=== PATIENT | male | born 1955 | race Two or more races ===

== ENCOUNTER → 2024-04-20 08:38 | Outpatient (CLI) | payer OTHER ==
[~2024-04-20 08:38] MED LIST: GABAPENTIN800 M1 PO
== END | disposition home or self-care (01) ==
LOC: LAB 08:38
PROVIDERS: ATTEND Urology
DX: R97.20 Elevated prostate specific antigen [PSA] (principal)

== ENCOUNTER 2024-06-22 08:51 | Outpatient (CLI) | payer OTHER | END 2024-06-22 08:59 | disposition home or self-care (01) | LOC: LAB 08:51 | PROVIDERS: ATTEND Urology | DX: R97.20 Elevated prostate specific antigen [PSA] (principal) ==

== ENCOUNTER → 2024-09-30 10:11 | Outpatient (CLI) | payer OTHER | END | disposition home or self-care (01) | LOC: LAB 10:11 | PROVIDERS: ATTEND Urology | DX: R97.20 Elevated prostate specific antigen [PSA] (principal) ==

== ENCOUNTER 2024-11-02 07:20 | Outpatient (CLI) | payer OTHER | END 2024-11-02 07:26 | disposition home or self-care (01) | LOC: SONOGRAMA 07:20 | PROVIDERS: ATTEND Urology | DX: N40.1 Benign prostatic hyperplasia with lower urinary tract symptoms (principal); R97.20 Elevated prostate specific antigen [PSA] ==

== ENCOUNTER 2024-11-04 05:34 | Inpatient (IN) | payer OTHER ==
[~2024-11-04] VITALS: Ht 152.4 cm; Wt 70.8 kg
[2024-11-04 09:32] LABS: HEMATOCRIT 43.4 % (39.0-48.0); HEMOGLOBIN 14.4 g/dL (13-16.00); MEAN CELL VOLUME 96.1 fL (80.0-100.00); MEAN CORPUSCULAR HGB CONC 33.3 g/dl (32.0-36.0); PLATELET COUNT 251 K/uL (150-450); RED BLOOD COUNT 4.51 M/uL (4.00-6.00); RED CELL DISTRIBUTION WIDTH 14.3 % (11.5-14.5)
[2024-11-04 10:23] LABS: ALBUMIN 3.4 gm/dL (3.4-5.0); BILIRUBIN TOTAL 0.86 mg/dL (0.3-1.2); CALCIUM 9.1 mg/dL (8.5-10.1); CREATININE SERUM 1.07 mg/dL (0.70-1.30); GFR 68.72; GLOBULINA 3.8 G/DL (2.4-3.5); POTASSIUM 4.33 mEq/L (3.5-5.1); TOTAL PROTEIN 7.2 gm/dL (6.4-8.2)
[2024-11-04 10:33] LABS: URINE APPEARANCE Clear; URINE BILIRRUBIN Negative (NEGATIVE); URINE BLOOD Negative; URINE COLOR Yellow; URINE GLUCOSE Negative (NEGATIVE); URINE KETONE Trace (NEGATIVE); URINE LEUKOCYTE Trace; URINE NITRATE Negative; URINE PROTEIN Negative (NEGATIVE); URINE UROBILINOGEN 0.2 E.U./dl
[2024-11-04 10:38] LABS: URINE BACTERIA 61.1 uL (0.0-1933); URINE EPITHELIAL CELLS 2.6 uL (0.0-38.8); URINE RBC 14.8 uL (0.0-20.8); URINE WBC 55.5 uL (0.0-23.2)
[2024-11-04] MEDS ORDERED: FAMOtidine 10 MG/ML (4ML VIAL) IV ONE (11:30)
[2024-11-04] MEDS ORDERED: levoFLOXacin IN DEXTROSE 5 % 500MG/100ML PIGGYBAG IV ONE (11:30)
[2024-11-04] MEDS ORDERED: FAMOTIDINE/PF 20 MG/2 ML VIAL ONE (11:31)
[2024-11-04] MEDS ORDERED: 0.9 % SODIUM CHLORIDE 1,000 ML IV SCH ×2 (15:38→17:15)
[2024-11-04] MEDS ORDERED: ONDANSETRON HCL 2 MG/ML VIAL IV ONE (16:00)
[2024-11-04] MEDS ORDERED: ONDANSETRON HCL 2 MG/ML VIAL ONE (16:42)
[2024-11-04] MEDS ORDERED: ACETAMINOPHEN 500 MG GEL..CAP PO ONE (16:57)
[2024-11-04] MEDS ORDERED: LOSARTAN POTASSIUM 50 MG TABLET PO SCH (17:00)
[2024-11-04] MEDS ORDERED: ACETAMINOPHEN 500 MG GEL..CAP PO PRN (17:00)
[2024-11-04 20:59] VITALS: BP 124/66; O2SAT 96
[2024-11-04] MEDS ORDERED: FAMOtidine 20 MG TABLET PO SCH (21:00)
[2024-11-05 01:21] VITALS: BP 103/69
[2024-11-05 06:53] LABS: HEMATOCRIT 38.3 % (39.0-48.0); HEMOGLOBIN 13.2 g/dL (13-16.00); MEAN CELL VOLUME 94.7 fL (80.0-100.00); MEAN CORPUSCULAR HEMOGLOBIN 32.7 pg (27.00-32.0); MEAN CORPUSCULAR HGB CONC 34.6 g/dl (32.0-36.0); PLATELET COUNT 182 K/uL (150-450); RED BLOOD COUNT 4.05 M/uL (4.00-6.00); RED CELL DISTRIBUTION WIDTH 14.5 % (11.5-14.5)
[2024-11-05 07:15] LABS: ALBUMIN 2.8 gm/dL (3.4-5.0); BILIRUBIN TOTAL 1.11 mg/dL (0.3-1.2); CALCIUM 8.1 mg/dL (8.5-10.1); CREATININE SERUM 1.06 mg/dL (0.70-1.30); GFR 69.47; GLOBULINA 3.4 G/DL (2.4-3.5); POTASSIUM 3.36 mEq/L (3.5-5.1); TOTAL PROTEIN 6.2 gm/dL (6.4-8.2)
[2024-11-05 07:17] LABS: C-REACTIVE PROTEIN 13.7 MG/DL (0.00-0.29)
[2024-11-05 08:09] VITALS: BP 138/64
[2024-11-05 08:09] LABS: ERYTHROCYTE SEDIMENTATION RATE 31 mm/hr
[2024-11-05 08:18] VITALS: BP 55/74
[2024-11-05] MEDS ORDERED: PATIENTS OWN MEDICATION (MEDICAMENTO EN PISO) PO SCH (09:00)
[2024-11-05] MEDS ORDERED: ENOXAPARIN SODIUM 40 MG/0.4 ML SYRINGE SUBCUTANEO SCH (09:00)
[2024-11-05] MEDS ORDERED: FAMOTIDINE/PF 20 MG in 0.9 % SODIUM CHLORIDE 8 ML IV PUSH SCH (09:00)
[2024-11-05] MEDS ORDERED: PROPRANOLOL HCL 120 MG PO SCH (09:00)
[2024-11-05] MEDS ORDERED: levoFLOXacin IN DEXTROSE 5 % 150 ML IV SCH (09:00)
[2024-11-05] MEDS ORDERED: LEVOTHYROXINE SODIUM 88 MCG TABLET PO SCH (11:00)
[2024-11-05] MEDS ORDERED: MEROPENEM 500 MG/VIAL VIAL IV STA (11:24)
[2024-11-05] MEDS ORDERED: CRESTOR 5 MG PO SCH (11:40)
[2024-11-05 12:44] LABS: PH,URINE 6.5 (5.0-8.0); URINE APPEARANCE Cloudy; URINE BILIRRUBIN Negative (NEGATIVE); URINE BLOOD Large; URINE COLOR Yellow; URINE GLUCOSE Negative (NEGATIVE); URINE KETONE Negative (NEGATIVE); URINE LEUKOCYTE Moderate; URINE NITRATE Negative; URINE PROTEIN Trace (NEGATIVE)
[2024-11-05 13:03] LABS: URINE BACTERIA 135.8 uL (0.0-1933); URINE RBC 3429.8 uL (0.0-20.8); URINE WBC 1032.3 uL (0.0-23.2)
[2024-11-05 13:16] LABS: URINE CAST 0.29 uL (0.0-1.40); URINE EPITHELIAL CELLS 0.4 uL (0.0-38.8)
[2024-11-05] MEDS ORDERED: LACTOBACILLUS ACIDOPHILUS 1 CAP CAP PO SCH (17:00)
[2024-11-05] MEDS ORDERED: MEROPENEM 500 MG/VIAL VIAL IV SCH (18:00)
[2024-11-05 18:30] VITALS: BP 137/78; O2SAT 97
[2024-11-06 01:59] VITALS: BP 138/80
[2024-11-06 08:13] VITALS: BP 134/77
[2024-11-06 17:26] VITALS: BP 149/86; O2SAT 98
[2024-11-06] MEDS ORDERED: ACETAMINOPHEN 500 MG GEL..CAP PO SCH (20:00)
[2024-11-07 01:50] VITALS: BP 136/69
[2024-11-07 09:00] VITALS: BP 161/88
[2024-11-07 17:27] VITALS: BP 166/85; O2SAT 97
[2024-11-08 02:49] VITALS: BP 145/69
[2024-11-08 09:36] VITALS: BP 152/93
[2024-11-08 13:30] LABS: URINE APPEARANCE Clear; URINE BILIRRUBIN Negative (NEGATIVE); URINE BLOOD Moderate; URINE COLOR Yellow; URINE GLUCOSE Negative (NEGATIVE); URINE KETONE Negative (NEGATIVE); URINE LEUKOCYTE Small; URINE NITRATE Negative; URINE PROTEIN Trace (NEGATIVE)
[2024-11-08 13:33] LABS: URINE BACTERIA 24.4 uL (0.0-1933); URINE EPITHELIAL CELLS 10.2 uL (0.0-38.8); URINE RBC 103.4 uL (0.0-20.8); URINE WBC 296.3 uL (0.0-23.2)
[2024-11-08 18:06] VITALS: BP 145/84; O2SAT 99
[2024-11-09 01:05] VITALS: BP 138/76; O2SAT 98
[2024-11-09] MEDS ORDERED: LEVOTHYROXINE SODIUM 88 MCG TABLET PO SCH (05:00)
[2024-11-09 06:42] LABS: HEMATOCRIT 34.6 % (39.0-48.0); MEAN CELL VOLUME 93.7 fL (80.0-100.00); MEAN CORPUSCULAR HEMOGLOBIN 32.6 pg (27.00-32.0); MEAN CORPUSCULAR HGB CONC 34.7 g/dl (32.0-36.0); PLATELET COUNT 215 K/uL (150-450); RED CELL DISTRIBUTION WIDTH 14.6 % (11.5-14.5)
[2024-11-09 06:58] LABS: ERYTHROCYTE SEDIMENTATION RATE 61 mm/hr
[2024-11-09 07:02] LABS: ALBUMIN 2.3 gm/dL (3.4-5.0); BILIRUBIN TOTAL 0.61 mg/dL (0.3-1.2); CALCIUM 8.1 mg/dL (8.5-10.1); CREATININE SERUM 0.72 mg/dL (0.70-1.30); GFR 108.56; GLOBULINA 3.3 G/DL (2.4-3.5); POTASSIUM 4.01 mEq/L (3.5-5.1); TOTAL PROTEIN 5.6 gm/dL (6.4-8.2)
[2024-11-09 07:03] LABS: C-REACTIVE PROTEIN 6.24 MG/DL (0.00-0.29)
[2024-11-09 08:50] VITALS: BP 160/90
[2024-11-09 16:38] VITALS: BP 146/86
[2024-11-10 01:25] VITALS: BP 164/81
[2024-11-10 09:48] VITALS: BP 140/56; O2SAT 98
[2024-11-10 18:06] VITALS: BP 157/85; O2SAT 98
[2024-11-10] MEDS ORDERED: HYDROCORTISONE 29 G,NYSTATIN 30 GM TOP SCH (18:16)
[2024-11-10] MEDS ORDERED: DIPHENHYDRAMINE HCL 50 MG CAPSULE PO STA (18:52)
[2024-11-10] MEDS ORDERED: FAMOtidine 20 MG TABLET PO SCH (21:00)
[2024-11-11 02:04] VITALS: BP 135/64
[2024-11-11 08:00] VITALS: BP 187/100
[2024-11-11] MEDS ORDERED: DIPHENHYDRAMINE HCL 50 MG CAPSULE PO SCH (09:00)
[2024-11-11 19:34] VITALS: BP 160/85; O2SAT 97
[2024-11-12 04:04] VITALS: BP 159/85
[2024-11-12 09:08] VITALS: BP 140/80
[2024-11-12 18:41] VITALS: BP 160/85; O2SAT 97
[2024-11-13 01:13] VITALS: BP 150/76; O2SAT 97
[2024-11-13 08:09] VITALS: BP 131/76
[2024-11-13 08:13] LABS: HEMATOCRIT 35.5 % (39.0-48.0); HEMOGLOBIN 12.1 g/dL (13-16.00); MEAN CELL VOLUME 93.4 fL (80.0-100.00); MEAN CORPUSCULAR HGB CONC 34.2 g/dl (32.0-36.0); PLATELET COUNT 393 K/uL (150-450); RED CELL DISTRIBUTION WIDTH 14.5 % (11.5-14.5)
[2024-11-13 09:16] LABS: ALBUMIN 2.6 gm/dL (3.4-5.0); BILIRUBIN TOTAL 0.37 mg/dL (0.3-1.2); CALCIUM 8.2 mg/dL (8.5-10.1); CREATININE SERUM 0.87 mg/dL (0.70-1.30); GFR 87.26; GLOBULINA 3.6 G/DL (2.4-3.5); POTASSIUM 4.59 mEq/L (3.5-5.1); TOTAL PROTEIN 6.2 gm/dL (6.4-8.2)
[2024-11-13 09:22] LABS: C-REACTIVE PROTEIN 1.07 MG/DL (0.00-0.29)
[2024-11-13 09:23] LABS: PROSTATIC SPECIFIC ANTIGEN 20.6 NG/ML (0.010-4.00)
[2024-11-13 13:55] LABS: ERYTHROCYTE SEDIMENTATION RATE 48 mm/hr
[2024-11-13] MEDS ORDERED: LACTOBACILLUS ACIDOPHILUS 1 CAP CAP PO SCH (17:00)
[2024-11-13 17:59] VITALS: BP 160/85; O2SAT 100
[2024-11-14 01:25] VITALS: BP 127/72; O2SAT 98
[2024-11-14 09:12] VITALS: BP 171/88
[2024-11-14] MEDS ORDERED: SODIUM CHLORIDE 0.45 % 1,000 ML IV SCH (10:00)
[2024-11-14] MEDS ORDERED: CHOLESTYRAMINE/ASPARTAME LIGHT 4 G/PKT PACKET PO STA (10:24)
[2024-11-14 17:24] VITALS: BP 145/76; O2SAT 97
[2024-11-15 00:33] VITALS: BP 127/72; O2SAT 97
[2024-11-15 08:19] VITALS: BP 148/88
[2024-11-15] MEDS ORDERED: INTESTINEX680 M1 PO (13:44)
[2024-11-15] MEDS ORDERED: FAMOTIDINE20 MG PO (13:44)
[2024-11-15 16:16] VITALS: BP 166/90
== END 2024-11-15 17:16 | disposition home or self-care (01) | DRG 862 ==
LOC: ER 05:36 → MEDJ 16:10 → SEC-K 16:10 → MEDJ 17:40
PROVIDERS: General Practice; Internal Medicine Infectious Disease; ADMIT Internal Medicine; ATTEND Internal Medicine
PROC: BW21ZZZ Computerized Tomography (CT Scan) of Abdomen and Pelvis (ICD-10-PCS; principal; 2024-11-04)
PROC: B246ZZZ Ultrasonography of Right and Left Heart (ICD-10-PCS; 2024-11-05)
PROC: 02HV33Z Insertion of Infusion Device into Superior Vena Cava, Percutaneous Approach (ICD-10-PCS; 2024-11-12)
DX: T81.44XA Sepsis following a procedure, initial encounter (principal); A41.89 Other specified sepsis; N39.0 Urinary tract infection, site not specified; N41.0 Acute prostatitis; R19.7 Diarrhea, unspecified; I10 Essential (primary) hypertension; G47.33 Obstructive sleep apnea (adult) (pediatric); Z88.0 Allergy status to penicillin; B96.1 Klebsiella pneumoniae [K. pneumoniae] as the cause of diseases classified elsewhere; Z98.890 Other specified postprocedural states